=== PATIENT | female | born 1980 | race Caucasian/White ===

== ENCOUNTER 2024-07-03 09:27 | Outpatient (CLI) | payer OTHER, SELFPAY ==
--- NOTE | ~2024-07-03 | MM_ITS ---
EXAMINATION: MM screening tom BI w maria esther HISTORY: Screening mammogram TECHNIQUE: Craniocaudal and mediolateral oblique 3-D tomosynthesis images were obtained and synthetic 2-D images were generated. CAD analysis was submitted and interpreted. COMPARISON: No prior mammogram is available for comparison at this institution. BREAST PARENCHYMAL COMPOSITION:Dense: The breasts are heterogeneously dense, which may obscure small masses. FINDINGS: No suspicious mass, calcification, or architectural distortion are identified in either mel ast to suggest malignancy. There has been no suspicious interval change. IMPRESSION: No mammographic evidence of malignancy. Recommend routine screening mammography in one year. BI-RADS Category 1: Negative Reviewed, dictated and finalized at location . R SLAGMAN
== END 2024-07-03 09:28 | disposition home or self-care (01) ==
LOC: ANHIMG 09:30
PROVIDERS: PCP Family Medicine; Visit Provider Family Medicine
DX: Z12.31 Encounter for screening mammogram for malignant neoplasm of breast (principal)
CPT/HCPCS: 77063; 77067

== ENCOUNTER 2025-07-05 08:12 | Outpatient (CLI) | payer OTHER, SELFPAY ==
--- NOTE | ~2025-07-05 | MM_ITS ---
EXAMINATION: MM screening tom BI w maria esther HISTORY: Screening TECHNIQUE: Craniocaudal and mediolateral oblique 3-D tomosynthesis images were obtained and synthetic 2-D images were generated. CAD analysis was submitted and interpreted. COMPARISON: 07/03/2024 BREAST PARENCHYMAL COMPOSITION: Dense: The breasts are heterogeneously dense, which may obscure small masses FINDINGS: There is no evidence of suspicious mass, calcification, or architectural distortion to suggest malignancy in either breast. There has been no suspicious interval change. IMPRESSION: 1. No mammographic evidence of malignancy. 2. Recommend routine screening mammography in one year. 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
--- OUTSIDE RECORDS SUMMARY | 2025-07-05 08:19 | XMS_ITS | Patient Health Record ---
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 Name Role Phone Alok Osuna Primary Care Provider Allergies Allergen (clinical drug ingredient) Drug/Non Drug Allergy documented on EMR Reaction Allergy Type Onset Date Status penicillin (uncoded) Unknown Allergy Active Reason For Referral No Information Medications Medication SIG (Take, Route, Frequency, Duration) Notes Start Date End Date Status Folic Acid 800 MCG 1 tablet Orally Once a day Active Multivitamin Adult - Orally Active carBAMazepine 200 MG 1 tablet Orally Twi ce a day Active Thiamine HCl 100 MG 1 tablet Orally Once a day Active buPROPion HCl ER (XL) 150 MG 1 tablet in the morning Orally Once a day Active DULoxetine HCl 60 MG 1 capsule Orally On ce a day Active Problems Problem Type SNOMED Code ICD Code Onset Dates Problem Status W/U Status Risk Notes Problem Alcohol use disorder (6058425716) Alcohol use disorder (F10.99) Active confirmed Problem Mild recurrent major depression (77042585) Mild episode of recurrent major depressive disorder (F33.0) Active confirmed Plan Of Treatment No Information Insurance Providers Payer Name Payer Address Payer Phone Subscriber Number Group Number Insured Name Patient Relationship to Insured Coverage Start Date Coverage End Date [facility] [address] [place] [phone] [id number] Sharifa Goldberg Self - patient is the insured 7 MED[address] [address] [place] [phone] [id number] Sharifa Goldberg Self - patient is the insured 7
== END 2025-07-05 08:13 | disposition home or self-care (01) ==
LOC: CHSIMG 08:14
PROVIDERS: PCP Family Medicine; Visit Provider Family Medicine
DX: Z12.31 Encounter for screening mammogram for malignant neoplasm of breast (principal)
CPT/HCPCS: 77063; 77067